=== PATIENT | female | born 2000 | race Caucasian/White ===

== ENCOUNTER 2020-01-29 17:15 | Emergency (ER) | payer MEDICAID, SELFPAY ==
[~2020-01-29] VITALS: Ht 162.6 cm; Wt 99.8 kg
[2020-01-29 20:53] VITALS: Ht 162.6 cm; Wt 99.8 kg
[2020-01-29 22:40] VITALS: BP 123/78
== END 2020-01-29 22:40 | disposition home or self-care (01) ==
LOC: ED 17:15
DX: U07.1 COVID-19 (principal)
CPT/HCPCS: U0003-CS